=== PATIENT | female | born 1950 | race Caucasian/White ===

== ENCOUNTER 2021-08-27 15:25 | Emergency (ER) | payer MEDICARE, SELFPAY ==
[2021-08-27 16:34] VITALS: BP 131/89; PULSE 73; RESP 14; TEMP 36.7; O2SAT 98; BMI 20.5
--- NOTE | 2021-08-27 17:13 | XRR_ITS ---
PROCEDURE INFORMATION: Exam: XR Right Foot Exam date and time: 08/27/2021 5:20 PM Age: 70 years old Clinical indication: Injury or trauma; Other: Puncture wound; Foot; Right; Foreign body involvement not specified TECHNIQUE: Imaging protocol: Radiologic exam of the Right foot. Views: 3 or more views. COMPARISON: No relevant prior studies available. FINDINGS: Bones/joints: There are degenerative changes in the 1st metatarsophalangeal joint. No fracture is identified. Soft tissues: Mild swelling in the lateral foot. No opaque foreign body is identified. XR/XR foot RT min 3V* [id number] IMPRESSION: 1. No foreign body is identified. 2. No fracture is identified.
--- NOTE | 2021-08-27 17:13 | ED_ITS ---
HPI - Extremity Problem General: Chief complaint: Extremity Problem,Nontraumatic Stated complaint: Stepped on a nail Time Seen by Provider: 08/27/21 17:02 History of Present Illness: 70-year-old female comes in today with a screw that she stepped on. The screw went through her shoe which remains in the board and the bottom of her foot. Patient is very guarded with anyone touching the board or shoe. Patient's last tetanus was 2 years ago. Patient denies any routine medications. Patient appears well. Shoe was cut from the foot and it was found that the screw was not embedded in the foot no more. Review of Systems General: Reports: 10 or more systems reviewed and unremarkable except in HPI and below Musc: Reports: extremity pain Skin/Breast: Reports: other (Puncture wound left foot) [facility] ED PFSH: Medical History No pertinent past medical history Surgical History No pertinent past surgical history Social History Smoking and tobacco status: former smoker History of recent travel: No Physical Exam Const: COMMON NORMALS: alert HENMT: HEAD & SCALP: normal to inspection Neck/C-Spine: COMMON NORMALS: full ROM Resp: COMMON NORMALS: normal respiratory effort Cardio: COMMON NORMALS: regular rate RATE: regular rate Extremity: RIGHT LOWER EXTREMITY: Yes foot & digits (Puncture wound to the ball of the foot at the 1st-2nd metatarsal) Neuro: SENSORIUM/ORIENTATION: Yes alert Skin: TRAUMA: puncture (Right foot) Course Vital Signs: Vital signs: Vital Signs Temperature 98.1 F 08/27/21 16:34 Pulse Rate 73 08/27/21 16:34 Respiratory Rate 14 08/27/21 16:34 Blood Pressure 131/89 08/27/21 16:34 Pulse Oximetry 98 08/27/21 16:34 MDM - Extremity (Nontraumatic) Medical Decision Making Patient comes in for puncture wound to the right foot. On exam patient has a board with a screw through the bottom of her right shoe. After cutting off the shoe it was found that the screw was no longer in the foot. Patient had some tenderness at the site of the puncture wound. Wound was clean. Pulses and sensation were intact distally. Differential diagnosis includes foreign body, fracture, puncture wound. X-ray noted no fracture or foreign body. Wound was cleaned and dressed. Patient will be continued on antibiotics Augmentin 1 tablet twice a day for 7 days. Recommend follow-up with primary care or return to ER for new concerns or worsening symptoms. Discharge Plan Discharge Patient Disposition: Home Clinical Impression: Puncture wound of foot Qualifiers: Encounter type: initial encounter Laterality: right Qualified Code(s): S91.331A - Puncture wound without foreign body, right foot, initial encounter Condition: Stable Prescriptions: New amoxicillin-pot clavulanate 875-125 mg tablet 1 tab PO BID Qty: 14 0RF No Action ciclopirox 8 % solution 1 applic topical DAILY 28 Days Qty: 6.6 6RF Rx Instructions: Apply to nails daily. Do not wash nails for 8hr post application; remove w/alcohol every 7 days Discharge Orders: Discharge ED (Routine); Ordered 08/27/21 Ordered By: Gautam Dimas Referrals: Savanah Sims DO [Primary Care Provider] - Discharge Diet: Usual diet Discharge Activity: Increase activity as tolerated Patient Instructions: Puncture Wound (ED) Activity Restrictions/Additional Instructions: Home and rest. Elevate foot for the next 48 hours. Take antibiotics 1 tablet twice a day for 7 days. Drink plenty of water with medications. Use acetaminophen and ibuprofen for pain. Use crutches as needed for ambulation if unable to bear weight. Follow-up with primary care for further treatment. Return to ER for new concerns. Coding Level of Care Code ED Exploration Engineer for Cristy Fwtarah Exam Detailed
[2021-08-27 17:42] VITALS: BP 131/89; PULSE 73; RESP 16; O2SAT 98
[2021-08-27] MEDS: acetaminophen 650 mg/20.3 mL UDC PO (17:58)
== END 2021-08-27 18:02 | disposition home or self-care (01) ==
PROVIDERS: Emergency Provider Nurse Practitioner Family; PCP Family Medicine
DX: S91.331A Puncture wound without foreign body, right foot, initial encounter (principal); Z87.891 Personal history of nicotine dependence; W45.0XXA Nail entering through skin, initial encounter
CPT/HCPCS: 73630; 99283

== ENCOUNTER → 2022-04-16 10:40 | Outpatient (BNVA) | payer MEDICARE, SELFPAY | PROVIDERS: PCP Family Medicine; Visit Provider Dermatology | DX: L72.11 Pilar cyst (principal) | CPT/HCPCS: 88304 ==

== ENCOUNTER → 2022-10-14 15:17 | Outpatient (BNVA) | payer MEDICARE, SELFPAY | PROVIDERS: PCP Family Medicine; Visit Provider Nurse Practitioner Family | DX: L81.4 Other melanin hyperpigmentation (principal); D22.5 Melanocytic nevi of trunk; L85.3 Xerosis cutis; L57.8 Other skin changes due to chronic exposure to nonionizing radiation; L57.0 Actinic keratosis | CPT/HCPCS: 17000; 17003; 99213 ==

== ENCOUNTER → 2023-01-17 15:10 | Outpatient (BNVA) | payer MEDICARE, SELFPAY | PROVIDERS: PCP Family Medicine; Visit Provider Nurse Practitioner Family | DX: L81.4 Other melanin hyperpigmentation (principal); D22.4 Melanocytic nevi of scalp and neck; L57.8 Other skin changes due to chronic exposure to nonionizing radiation; L57.0 Actinic keratosis | CPT/HCPCS: 17000; 99213 ==